=== PATIENT | male | born 1995 | race Hispanic/Latino ===

== ENCOUNTER 2021-10-24 06:58 | Observation (INO) | payer OTHER ==
--- OUTSIDE RECORDS SUMMARY | 2021-10-24 07:01 | XMS REPORT | Continuity of Care Document ---
:1995 Author Organization [facility] t Address [address] [place] [address] Dr. Khalil [address] [place] [id number] Care Team Providers Name Role Phone TORRIE PULLIAM Attending Clinician Unavailable Payers Payer Name Policy Type Policy Number Effective Date Expiration Date Donny [facility]ONZALE[facility] [place] [id number] 2018 00:00:00 Problems This patient has no known problems. Allergies, Adverse Reactions, Alerts Allergy Allergy Status Severity Reaction(s) Onset Inactive Treating Comm ents Source Name Type Date Date Clinician NO KNOWN Drug Active [facility]ERG[facility] Medications This patient has no known medications. Procedures This patient has no known procedures. Encounters Start End Encounter Admission Attending Care Care Encounter Source Date/Time Date/Time Type Type Clinicians Facility Department ID 2019-12-30 2019-12-30 Emergency X MIGUEL A PULLIAM ERT [id number] [facility] 10:37:00 10:37:00 [facility] Results This patient has no known results.
[2021-10-24 07:53] LABS: Absolute Lymphocytes (CBC) 2.3 K/uL (0.7-4.9); Hematocrit 46.5 % (39.6-49.0); Lymphocytes % 17.8 % (15.3-44.8); RBC Red Blood Cell Count 5.66 M/uL (4.33-5.43)
[2021-10-24 08:13] LABS: Albumin 4.1 g/dL (3.4-5.0); Bilirubin Total 0.6 mg/dL (0.2-1.0); Potassium 3.9 mmol/L (3.5-5.1); Protein, Total 8.2 g/dL (6.4-8.2)
--- NOTE | 2021-10-24 08:35 | RAD REPORT ---
EXAM DESCRIPTION: CTAbdomen Pelvis W Contrast - 10/24/2021 8:24 am CLINICAL HISTORY: Abdominal pain. Abdominal pain, acute, nonlocalized COMPARISON: No comparisons TECHNIQUE: Biphasic CT imaging of the abdomen and pelvis was performed with 100 ml non-ionic IV cont rast. All CT scans are performed using dose optimization technique as appropriate and may include automated exposure control or mA/KV adjustment according to patient size. FINDINGS: The lung bases are clear. The liver demonstrates mild fatty infiltration. Spleen, pancreas, adrenal glands and kidneys are with in normal limits. No bowel obstruction, free air, free fluid or abscess. The appendix is mildly enlarged to 10-11 mm w ith mild surrounding inflammation. Small fat containing umbilical hernia. No evidence of significant lymphadenopathy. No suspicious bony findings. IMPRESSION: Early acute appendicitis suspected.
--- NOTE | 2021-10-24 08:50 | ER ---
Nurse's Notes [facility] Name: Ford Castro Age: 26 yrs Sex: Male : 1995 Arrival Date: 10/24/2021 Time: 07:01 Bed 6 Private MD: Diagnosis: Unspecified acute appendicitis Presentation: 10/24 07:09 Chief complaint: Patient states: he woke up early this morning with abdominal pain in ap3 the upper and left quadrants. Patient also reports having "bloody stools for a few months now". Patient states he didn't "think much of the blood stool, until the abdominal pain started.". Coronavirus screen: At this time, the client does not indicate any symptoms associated with coronavirus-19. Ebola Screen: No symptoms or risks identified at this time. Initial Sepsis Screen: Does the patient meet any 2 criteria? No. Patient's initial sepsis screen is negative. Does the patient have a suspected source of infection? No. Patient's initial sepsis screen is negative. Risk Assessment: Do you want to hurt yourself or someone else? Patient reports no desire to harm self or others. Onset of symptoms was October 24, 2021. 07:09 Method Of Arrival: Ambulatory ap3 07:09 Acuity: LE 3 ap3 Triage Assessment: 07:12 General: Appears in no apparent distress. Behavior is calm, cooperative, appropriate ap3 for age. Pain: Complains of pain in right upper quadrant, left upper quadrant and left lower quadrant Pain began 2 hours ago. Aggravated by laying down makes pain worse. Neuro: Level of Consciousness is awake, alert, obeys commands, Oriented to person, place, time, situation, Appropriate for age Speech is normal. Cardiovascular: Patient's skin is warm and dry. Respiratory: Airway is patent Respiratory effort is even, unlabored. GI: Reports lower abdominal pain, upper abdominal pain, bloody stool. Historical: - Allergies: 07:11 No Known Allergies; ap3 - Home Meds: 07:11 Lisinopril Oral [Active]; Hydrochlorothiazide Oral [Active]; Metformin Oral for ap3 prevention of type 2 diabetes mellitus [Active]; - PMHx: 07:11 Hypertensive disorder; ap3 - Immunization history:: Client reports having NOT received the Covid vaccine. - Social history:: Smoking status: Reported history of juuling and/or vaping. Patient uses alcohol, occasionally. - Family history:: not pertinent. - Hospitalizations: : No recent hospitalization is reported. Screenin:13 Abuse screen: Denies threats or abuse. Nutritional screening: No deficits noted. ap3 Tuberculosis screening: No symptoms or risk factors identified. Fall Risk None identified. Assessment: 07:15 General: SEE TRIAGE NOTE. bp 08:31 Reassessment: PT RETURNED FROM CT. bp 09:07 Reassessment: PER MD, PT +APPY. SURG C/S PENDING. bp 09:59 Reassessment: Patient appears in no apparent distress at this time. Patient and/or ph family updated on plan of care and expected duration. Pain level reassessed. Patient is alert, oriented x 3, equal unlabored respirations, skin warm/dry/pink. Pt taken to OR. Vital Signs: 07:09 BP 159 / 104; Pulse 74; Temp 97.6; Pulse Ox 98% ; Weight 144.24 kg; Height 5 ft. 8 in. ap3 (172.72 cm); 08:34 BP 145 / 98; Pulse 69; Resp 16; Pulse Ox 98% ; bp 09:30 BP 136 / 78; Pulse 64; Resp 18; Temp 97.9; Pulse Ox 99% on R/A; ph 07:09 Body Mass Index 48.35 (144.24 kg, 172.72 cm) ap3 ED Course: 07:01 Patient arrived in ED. rg4 07:01 Seth Tavera MD is Attending Physician. rn 07:11 Triage completed. ap3 07:13 Arm band placed on right wrist. ap3 07:15 Patient has correct armband on for positive identification. Bed in low position. Call bp light in reach. Side rails up X2. 07:19 Usman Luis, RN is Primary Nurse. as6 07:21 Jessica Poole, INNA is Primary Nurse. ph 07:42 Inserted saline lock: 20 gauge in left antecubital area, using aseptic technique. Blood bp collected. 08:25 CT Abd/Pelvis - IV Contrast Only In Process Unspecified. EDMS 08:49 Caleb Pendleton MD is Hospitalizing Provider. rn 09:59 No provider procedures requiring assistance completed. Patient admitted, IV remains in ph place. 10:20 Primary Nurse role handed off by Jessica Poole, INNA bd 10:21 Hospitalizing Provider role handed off by Caleb Pendleton MD 10:21 Ric Barba is Hospitalizing Provider. bd Administered Medications: 09:08 Drug: Zosyn (piperacillin-tazobactam) 3.375 grams Route: IVPB; Infused Over: 60 mins; bp Site: left antecubital; 10:00 Follow up: Response: No adverse reaction; IV Status: Infusion continued upon admission ph Medication: 07:15 VIS not applicable for this client. bp Outcome: 08:49 Decision to Hospitalize by Provider. rn 10:05 Admitted to OR accompanied by nurse, family with patient, via stretcher. ph 10:05 Condition: stable 10:05 Instructed on the need for admit. 10:07 Patient left the ED. 10:21 Patient left the ED. bd Signatures: Dispatcher [employer] EDMS Marlin Ramos Roman, MD MD rn Smirch, Shelby, RN RN Jessica Poole, INNA RN Rebeca Sanders 4 Sky Kirby RN RN bp Prokisch, Amanda, RN RN ap3 Usman Luis RN RN as6
--- NOTE | 2021-10-24 08:50 | EDPHYS ---
Physician Documentation [facility] Name: Ford Castro Age: 26 yrs Sex: Male : 1995 Arrival Date: 10/24/2021 Time: 07:01 Bed 6 Private MD: ED Physician Seth Tavera HPI: 10/24 07:22 This 26 yrs old Male presents to ER via Ambulatory with complaints of rn Abdominal Pain, Bloody Stools. 07:22 The patient presents with abdominal pain in the left upper quadrant, in the left lower rn quadrant. 07:23 Onset: The symptoms/episode began/occurred this morning. The symptoms do not radiate. rn Associated signs and symptoms: Pertinent positives: blood in stools, Pertinent negatives: nausea and vomiting, chest pain, constipation, diarrhea, dysuria, fever, hematuria, shortness of breath, testicular pain, vomiting, vomiting blood. The symptoms are described as crampy. Modifying factors: The symptoms are alleviated by nothing, the symptoms are aggravated by touching the area. Severity of pain: At its worst the pain was moderate in the emergency department the pain is unchanged. The patient has experienced similar episodes in the past. The patient has not recently seen a physician. Pt reports left and upper abd pain, began this AM, assoc with bloody stools. No vomiting or diarrhea. NO fever. Reports intermittent bloody stools for last 2 months. Has gone away on its own in past, but came in today because abd pain and blood in stool happening at same time, which hasn't happened before.. Historical: - Allergies: 07:11 No Known Allergies; ap3 - Home Meds: 07:11 Lisinopril Oral [Active]; Hydrochlorothiazide Oral [Active]; Metformin Oral for ap3 prevention of type 2 diabetes mellitus [Active]; - PMHx: 07:11 Hypertensive disorder; ap3 - Immunization history:: Client reports having NOT received the Covid vaccine. - Social history:: Smoking status: Reported history of juuling and/or vaping. Patient uses alcohol, occasionally. - Family history:: not pertinent. - Hospitalizations: : No recent hospitalization is reported. ROS: 07:23 Constitutional: Negative for fever, chills, and weight loss, Eyes: Negative for injury, rn pain, redness, and discharge, Neck: Negative for injury, pain, and swelling, Cardiovascular: Negative for chest pain, palpitations, and edema, Respiratory: Negative for shortness of breath, cough, wheezing, and pleuritic chest pain, Abdomen/GI: + abd pain and blood in stool. Back: Negative for injury and pain, MS/Extremity: Negative for injury and deformity, Skin: Negative for injury, rash, and discoloration, Neuro: Negative for headache, weakness, numbness, tingling, and seizure. Exam: 07:23 Constitutional: This is a well developed, well nourished patient who is awake, alert, rn and in no acute distress. Head/Face: Normocephalic, atraumatic. Eyes: Periorbital areas with no swelling, redness, or edema. Cardiovascular: Regular rate and rhythm. No pulse deficits. Respiratory: No increased work of breathing, no retractions or nasal flaring. Abdomen/GI: soft, mild tenderness LUQ and LLQ, no rebound or masses, neg delgado Skin: Warm, dry MS/ Extremity: Pulses equal, no cyanosis. Neuro: Awake and alert, GCS 15 Vital Signs: 07:09 BP 159 / 104; Pulse 74; Temp 97.6; Pulse Ox 98% ; Weight 144.24 kg; Height 5 ft. 8 in. ap3 (172.72 cm); 08:34 BP 145 / 98; Pulse 69; Resp 16; Pulse Ox 98% ; bp 09:30 BP 136 / 78; Pulse 64; Resp 18; Temp 97.9; Pulse Ox 99% on R/A; ph 07:09 Body Mass Index 48.35 (144.24 kg, 172.72 cm) ap3 MDM: 07:01 Patient medically screened. rn 08:48 Differential diagnosis: appendicitis, diverticulitis, non-specific abd pain. Data rn reviewed: vital signs, nurses notes, lab test result(s), radiologic studies, CT scan, and as a result, I will admit patient. Counseling: I had a detailed discussion with the patient and/or guardian regarding: the historical points, exam findings, and any diagnostic results supporting the discharge/admit diagnosis, lab results, radiology results, the need for further work-up and treatment in the hospital. Response to treatment: the patient's symptoms have mildly improved after treatment, and as a result, I will admit patient. Admission orders: after a detailed discussion of the patient's condition and case, the admit orders are written by me. 10/24 07:18 Order name: CBC with Diff; Complete Time: 08:23 rn 10/24 07:18 Order name: CMP; Complete Time: 08:23 rn 10/24 07:18 Order name: Lipase; Complete Time: 08:23 rn 10/24 07:18 Order name: CT Abd/Pelvis - IV Contrast Only; Complete Time: 08:47 rn 10/24 08:59 Order name: COVID-19 SARS RT PCR (Document "Date of Onset" if Symptomatic) ph 10/24 07:18 Order name: IV Saline Lock; Complete Time: 07:42 rn 10/24 07:18 Order name: Labs collected and sent; Complete Time: 07:42 rn 10/24 08:48 Order name: NPO; Complete Time: 08:50 rn Administered Medications: 09:08 Drug: Zosyn (piperacillin-tazobactam) 3.375 grams Route: IVPB; Infused Over: 60 mins; bp Site: left antecubital; 10:00 Follow up: Response: No adverse reaction; IV Status: Infusion continued upon admission ph Disposition Summary: 10/24/21 08:49 Hospitalization Ordered Hospitalization Status: Observation rn Location: Telemetry/MedSurg (observation) rn Condition: Stable rn Problem: new rn Symptoms: have improved rn Bed/Room Type: Standard rn Room Assignment: rn Provider: Ric Barba(10/24/21 10:21) donis Diagnosis - Unspecified acute appendicitis rn Forms: - Medication Reconciliation Form rn - SBAR form rn Signatures: Dispatcher [employer] Marlin Ruiz Roman, MD MD rn Peltier, Brian, RN RN bp Kinsey Pratt RN RN jack3 Jessica Poole RN ph Corrections: (The following items were deleted from the chart) 10:21 08:49 Caleb Pendleton rn bd
[2021-10-24] MEDS ORDERED: NA CHLORIDE 0.9% 100 ML ONE (09:03)
[2021-10-24] MEDS ORDERED: PIPERACIL/TAZO 3.375 GM VIAL IV ONE (09:03)
[2021-10-24] MEDS: NA CHLORIDE 0.9% 1,000 ML ONE (10:10)
[2021-10-24] MEDS ORDERED: ONDANSETRON 4 MG/2 ML VIAL ONE ×2 (10:12→11:52)
[2021-10-24] MEDS ORDERED: FENTANYL CITR 100 MCG/2 ML ONE ×2 (10:12→11:05)
[2021-10-24] MEDS ORDERED: ROCURONIUM 50 MG/5 ML VIAL IV ONE ×2 (10:12→11:07)
[2021-10-24] MEDS ORDERED: LIDOCAINE 2% MPF 5 ML VIAL ONE (10:12)
[2021-10-24] MEDS ORDERED: propofoL 200 MG/20 ML VIAL IV ONE (10:12)
[2021-10-24] MEDS ORDERED: MIDAZOLAM HCL 2 MG/2 ML INJ ONE (10:12)
--- NOTE | 2021-10-24 10:22 | P.CNS ---
Date of Consult: 10/24/21 Reason for consult: Abdominal pain History of present illness: 26-year-old gentleman presents to the emergency room with acute onset of diffuse abdominal pain associated with nausea and loose bowel movements. Patient denies any sore throat, headaches, dizziness, cough, chest pain, fever or chills. Patient has occasional bright red blood per rectum secondary to his hemorrhoids. Patient denies dysuria or hematuria. Patient does have some anorexia. Patient has never had symptoms like this before. Review of systems: Otherwise unremarkable Past medical history: Hypertension and prediabetic Past surgical history: Negative Allergies: Negative Social history: Patient vapes and drinks occasionally Family history: Noncontributory Vital signs: Stable, afebrile Physical exam: Awake alert oriented x3 Head and neck exam: Cranial nerves II through XII grossly within normal limits, throat clear, neck supple, no JVD and no neck masses Chest: Clear Heart: S1-S2 Abdomen: Soft, nondistended, positive bowel sounds, positive right lower quadrant tenderness with no rebound, rigidity or guarding Extremity: Full range of motion and nontender Neuro: Nonfocal Diagnostic data: White count is slightly elevated, CT scan of the abdomen pelvis is consistent with early acute appendicitis Assessment: Acute appendicitis Plan/recommendation: Admit, n.p.o., IV fluids, IV antibiotics and to the OR for laparoscopic appendectomy possible open. Patient understands risks, benefits and alternatives and agrees to procedure. CC:
[2021-10-24] MEDS ORDERED: D5 0.45 NS 1,000 ML IV SCH (11:20)
[2021-10-24] MEDS ORDERED: ONDANSETRON 4 MG/2 ML VIAL IV PRN (11:20)
[2021-10-24] MEDS ORDERED: MORPHINE 4 MG/ML SYR IV PRN (11:20)
[2021-10-24] MEDS ORDERED: NEOSTIGMINE 1 MG/ML -10 ML VIAL ONE (11:22)
[2021-10-24] MEDS ORDERED: GLYCOPYRROLATE 0.2 MG/ML SYR ONE (11:22)
[2021-10-24] MEDS ORDERED: Mastisol Adhesive Liq ONE (11:26)
[2021-10-24] MEDS ORDERED: KETOROLAC 30 MG/ML INJ ONE (11:30)
[2021-10-24] MEDS ORDERED: HYDROCODONE/APAP 7.5/325 MG TAB PO PRN (11:31)
[2021-10-24] MEDS ORDERED: HYDROMORPHONE HCL 1 MG/ML INJ IV PRN (11:31)
--- NOTE | 2021-10-24 11:31 | P.OP ---
Date of Service: 10/24/21 Preop diagnosis: Acute appendicitis Postop diagnosis: Same Procedure performed: Laparoscopic appendectomy Surgeon: Caleb Pendleton MD Commodity Management Specialist: Chelita MAN Estimated blood loss: Minimal Specimen: Appendix Findings: As above Anesthesia: General Complications: None Drains: None Fluids and blood products: Nonapplicable Disposition: Recovery Operative note: Patient brought to the OR and placed in the supine position. General anesthesia begun. Patient prepped and draped in the usual sterile fashion. Marcaine 0.5% infiltrated locally. 15 blade used to make a 1 cm supraumbilical midline incision. Subcutaneous tissue divided. Fascia identified and divided. #1 Vicryl stay suture placed.. Peritoneal cavity entered with sharp and blunt dissection. 12 mm trocar placed into the peritoneal cavity under direct vision. Pneumoperitoneum established. 2 5 mm trochars placed 1 in the suprapubic region and 1 in the left lower quadrant. Laparoscopy revealed acute inflammation of the appendix. Then base the appendix on the cecum clearly identified. LigaSure used to divide the mesoappendix. Endo ALEX stapling device used to divide the base of the appendix on the cecum. The appendix was retrieved through the umbilicus via Endo Catch bag. Right lower quadrant irrigated. Effluent clear and no evidence of bleeding or bowel injury appreciated. All trochars removed under direct vision. Stay sutures tied to each other to reapproximate the fascial defect. Subcutaneous wounds were irrigated and bleeding controlled with cautery. 3-0 chromic was used to approximate subcutaneous tissue in close skin. Sterile dressing applied. Patient awakened and taken to recovery room in good general condition. CC:
[2021-10-24] MEDS ORDERED: MEPERIDINE HCL 25 MG/ML SYR ONE (11:45)
[2021-10-24] MEDS ORDERED: ACETAMINOPHEN 500 MG TAB PO PRN (14:05)
--- NOTE | 2021-10-24 14:09 | P.HP ---
Certification for Inpatient Patient admitted to: Observation With expected LOS: <2 Midnights Patient will require the following post-hospital care: None Practitioner: I am a practitioner with admitting privileges, knowledge of patient current condition, hospital course, and medical plan of care. Services: Services provided to patient in accordance with Admission requirements found in Title 42 Section 412.3 of the Code of Federal Regulations Patient History Date of Service: 10/24/21 Reason for admission: abdominal pain. History of Present Illness: Patient is a 26-year-old male with a past medical history significant for KRISHAN, hypertension, morbid obesity, hemorrhoids prediabetes who presents with complaint of left-sided abdominal pain onset when he woke up this morning. Patient rated pain as 7/10 in severity and described pain as cramping in quality. Patient reported associated signs and symptoms of diarrhea. Patient also reported that he has been having black stools intermittently for the past 2 months whenever he uses the bathroom. Patient denies any other signs or symptoms. Symptoms are aggravated or relieved by nothing. Patient decided to present to the hospital due to worsening symptoms. Allergies No Known Allergies Allergy (Unverified 10/24/21 10:30) Home medications list reviewed: Yes Home Medications: Lisinopril [Zestril] 10 10/24/21 Metformin HCl [Glucophage*] 500 10/24/21 hydroCHLOROthiazide [Hydrochlorothiazide] 12.5 10/24/21 - Past Medical/Surgical History -: HTN -: Obesity -: KRISHAN Past Surgical History: Reviewed- Non-Contributory - Family History Family History: Reviewed- Non-Contributory - Social History Alcohol use: Yes CD- Drugs: No Caffeine use: No Place of Residence: Home Review of Systems General: Unremarkable Eyes: Unremarkable ENT: Unremarkable Respiratory: Unremarkable Cardiovascular: Unremarkable Gastrointestinal: Abdominal Pain, Diarrhea, Other (Intermittent rectal bleeding.) Genitourinary: Unremarkable Musculoskeletal: Unremarkable Integumentary: Unremarkable Physical Examination - Vital Signs Temperature: 98.3 F Blood Pressure: 131/71 Pulse: 82 Respirations: 18 Pulse Ox (%): 98 - Physical Exam General: Oriented x3, Cooperative HEENT: Atraumatic, Normocephalic, PERRLA Neck: Supple, 2+ carotid pulse no bruit, JVD not distended Respiratory: Clear to auscultation bilaterally, Normal air movement Cardiovascular: No edema, Normal pulses, Normal S1 S2 Capillary refill: <2 Seconds Gastrointestinal: Non-distended, Tenderness Musculoskeletal: No clubbing, No swelling, No erythema Integumentary: No rashes, No breakdown, No significant lesion, No tenderness/swelling Neurological: Normal gait, Normal speech, Normal strength at 5/5 x4 extr, Normal tone Lymphatics: No axilla or inguinal lymphadenopathy - Studies Laboratory Data (last 24 hrs) 10/24/21 07:40: Sodium 137, Potassium 3.9, BUN 10, Creatinine 1.07, Glucose 102, Total Bilirubin 0.6, AST 17, ALT 43, Alkaline Phosphatase 74, Lipase 67 L 10/24/21 07:40: WBC 12.6 H, Hgb 15.9, Hct 46.5, Plt Count 264 Assessment and Plan - Plan --Acute appendicitis. Noted on CT imaging. Surgeon consulted. Patient scheduled to have an appendectomy. We will keep patient NPO. Continue IV hydration and antibiotics. -- Acute pain. We will manage pain with current pain medication regimen. --Hypertension. Poorly controlled. Continue home medications and hydralazine a s needed --Class III obesity. Likely secondary to excess calories intake. Patient counseled on weight reduction, diet and exercise therapy. --History of hemorrhoids. Patient reported that he has been having intermittent bright red blood in the last 2 months. Patient instructed to follow-up with a GI MD outpatient. H&H stable. We will continue to monitor hemoglobin. --KRISHAN. CPAP at bedtime. --Diarrhea. Patient reported a one-time episode of diarrhea today. We will continue to monitor and order stool studies if diarrhea persist. --Prediabetes. We will get a hemoglobin A1c. Patient counseled on diet and exercise therapy. --Leukocytosis. Likely secondary to appendicitis. Continue antibiotics. Will reassess levels in a.m. --DVT prophylaxis with SCDs. Discharge Plan: Home Plan to discharge in: 48 Hours - Advance Directives Does patient have a Living Will: No Does patient have a Durable POA for Healthcare: No - Code Status/Comfort Care Code Status Assessed: Yes Code Status: Full Code Physician Review: Patient Assessed, Agree with Above Assessment and Plan Critical Care: No
[2021-10-24 14:36] VITALS: BMI 48.3
[2021-10-24] MEDS ORDERED: HYDRALAZINE HCL 20 MG/ML VIAL IV PRN (16:39)
[2021-10-24] MEDS: PIPER TAZO 3.375 GM in NA CHLORIDE 0.9% 100 ML IV SCH (17:08)
[2021-10-24 19:22] LABS: Urine Appearance Clear (Clear); Urine Bilirubin Negative (Negative); Urine Blood Negative (Negative); Urine Color Yellow (Yellow); Urine Glucose Negative (Negative); Urine Protein Trace (Negative); Urine Urobilinogen 0.2 mg/dL (0.2-1.0)
[2021-10-24 19:26] LABS: Urine Microscopic Reflex ORDER UMIC
[2021-10-24 19:30] LABS: Urine Bacteria <20 /HPF (NONE SEEN); Urine Mucus 1+ /HPF (NONE SEEN); Urine RBC <5 /HPF (NONE SEEN)
[2021-10-24 20:26] VITALS: O2SAT 98
[2021-10-24] MEDS: NACHLORIDE 0.45% 1,000 ML IV SCH (21:14)
[2021-10-25] MEDS: PIPER TAZO 3.375 GM in NA CHLORIDE 0.9% 100 ML IV SCH (01:52)
[2021-10-25] MEDS: NACHLORIDE 0.45% 1,000 ML IV SCH (02:00)
[2021-10-25] MEDS ORDERED: NA CHLORIDE 0.9% 100 ML ONE (03:12)
[2021-10-25 03:59] LABS: Absolute Lymphocytes (CBC) 2.6 K/uL (0.7-4.9); Hematocrit 42.7 % (39.6-49.0); Lymphocytes % 24.5 % (15.3-44.8); MPV 9.2 fL (7.6-11.3); RBC Red Blood Cell Count 5.07 M/uL (4.33-5.43)
[2021-10-25 04:20] LABS: Albumin 3.5 g/dL (3.4-5.0); Bilirubin Total 0.7 mg/dL (0.2-1.0); Potassium 4.7 mmol/L (3.5-5.1)
--- NOTE | 2021-10-25 08:22 | P.DS ---
Admission Date: 10/24/21 Discharge Date: 10/25/21 Disposition: ROUTINE DISCHARGE Discharge Condition: GOOD Reason for Admission: abdominal pain. Consultations: Hospitalist consultation for management of hypertension and diabetes as well as sleep apnea. Procedures: Laparoscopic appendectomy yesterday. Brief History of Present Illness: 26-year-old gentleman presented to the emergency room with abdominal pain. Work-up revealed acute appendicitis. Patient underwent a uneventful laparoscopic appendectomy yesterday. Hospital Course: Postoperatively, patient is tolerating diet, ambulating, pain controlled on p.o. pain medication and patient is afebrile; therefore, patient will be discharged to home. Patient's medical conditions were managed by the hospitalist. Discharge instructions given. Antibiotics and pain medicine called into patient's pharmacy. Vital Signs/Physical Exam: Temp Pulse Resp BP Pulse Ox 98.8 F 61 18 140/73 95 10/25/21 04:00 10/25/21 04:00 10/25/21 04:00 10/25/21 04:00 10/25/21 04:00 Laboratory Data at Discharge: WBC 10.6 K/uL (4.3-10.9) D 10/25/21 03:29 Hgb 14.5 g/dL (13.6-17.9) 10/25/21 03:29 Hct 42.7 % (39.6-49.0) 10/25/21 03:29 Plt Count 232 K/uL (152-406) 10/25/21 03:29 Sodium 136 mmol/L (136-145) 10/25/21 03:29 Potassium 4.7 mmol/L (3.5-5.1) 10/25/21 03:29 BUN 9 mg/dL (7-18) 10/25/21 03:29 Creatinine 1.25 mg/dL (0.55-1.3) 10/25/21 03:29 Glucose 96 mg/dL (74-106) 10/25/21 03:29 Total Bilirubin 0.7 mg/dL (0.2-1.0) 10/25/21 03:29 AST 12 U/L (15-37) L 10/25/21 03:29 ALT 32 U/L (12-78) 10/25/21 03:29 Alkaline Phosphatase 61 U/L (45-117) 10/25/21 03:29 Triglycerides 223 mg/dL (<150) H 10/24/21 19:07 Cholesterol 150 mg/dL (<200) 10/24/21 19:07 HDL Cholesterol 25 mg/dL (40-60) L 10/24/21 19:07 Cholesterol/HDL Ratio 6.00 10/24/21 19:07 Lipase 67 U/L (73-393) L 10/24/21 07:40 Home Medications: Lisinopril [Zestril] 1 mg PO DAILY 10/24/21 Metformin HCl [Glucophage*] 1 mg PO DAILY 10/24/21 hydroCHLOROthiazide [Hydrochlorothiazide] 1 mg PO DAILY 10/24/21 Physician Discharge Instructions: Remove outer dressing and shower Keep Steri-Strips on at all times Incentive spirometry as ordered Augmentin and Tylenol 3 called into patient's pharmacy Diet: ADA Activity: No lifting more than 10 lbs Followup: Meryl Pardo NP [Primary Care Provider] - Caleb Pendleton MD [ACTIVE - CAN ADMIT] - 1 Week
[2021-10-25 08:41] VITALS: BP 156/91; TEMP 97.6
[2021-10-25] MEDS ORDERED: lisinopriL 10 MG TAB PO SCH (09:00)
[2021-10-25] MEDS ORDERED: hydroCHLOROthiazide 12.5 MG CAP PO SCH (09:00)
== END 2021-10-25 09:00 | disposition home or self-care (01) ==
LOC: ER 06:58 → ERHOLD 09:19 → 2ND 12:43
PROVIDERS: ADMIT Surgery; ATTEND Internal Medicine
PROC: 0DTJ4ZZ Resection of Appendix, Percutaneous Endoscopic Approach (ICD-10-PCS; principal; 2021-10-24 10:15)
DX: K35.80 Unspecified acute appendicitis (principal); R73.03 Prediabetes; I10 Essential (primary) hypertension; G47.33 Obstructive sleep apnea (adult) (pediatric); R19.7 Diarrhea, unspecified; K64.9 Unspecified hemorrhoids; R63.0 Anorexia; K21.9 Gastro-esophageal reflux disease without esophagitis; E66.01 Morbid (severe) obesity due to excess calories; Z68.42 Body mass index [BMI] 45.0-49.9, adult; Z71.3 Dietary counseling and surveillance; F17.290 Nicotine dependence, other tobacco product, uncomplicated; Z79.84 Long term (current) use of oral hypoglycemic drugs; Z79.899 Other long term (current) drug therapy; Z28.310 Unvaccinated for COVID-19; Z20.822 Contact with and (suspected) exposure to COVID-19
CPT/HCPCS: 96365; 87088; 85025 ×2; 87086; 36415 ×2; 80061; 82947; 88304; 83036; 83690; 80053 ×2; 74177; 94010; 99285; 44970; U0003; Q9967; J2704; J2710; J2543 ×3; J2250; J3010 ×2; J2175; J1170; J7030; J2405 ×2; G0378 ×3; 81003; 81015; J7799